=== PATIENT | male | born 1995 | race Caucasian/White ===

== ENCOUNTER 2016-07-20 17:27 | Emergency (ER) | payer SELFPAY ==
[2016-07-20] MEDS ORDERED: BACITRACIN-POLYMYXIN B OINT U/D PACK TOP ONE (17:34)
[2016-07-20 17:43] VITALS: O2SAT 99
[2016-07-20] MEDS ORDERED: SODIUM CHLORIDE 0.9% (FLUSH) 10 ML SYG IV PRN (18:10)
[2016-07-20] MEDS ORDERED: SODIUM CHLORIDE 0.9% 1000ML 1,000 ML IVS PRN (18:10)
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
--- NOTE | 2016-07-20 18:36 | RAD ---
EXAM DESCRIPTION: Chest,1 View CLINICAL HISTORY: TRAUMA COMPARISON: None available TECHNIQUE: AP chest FINDINGS: The lungs are clear. There is no infiltrate or effusion. The heart is normal size. IMPRESSION: Normal one view chest Electronically signed by: Calin Samaniego MD 07/20/2016 6:35 PM CDT
--- NOTE | 2016-07-20 18:37 | RAD ---
EXAM DESCRIPTION: Elbow,Right 3 Views CLINICAL HISTORY: TRAUMA COMPARISON: None. TECHNIQUE: 3 views FINDINGS: I see no bone joint or soft tissue abnormality. IMPRESSION: Normal right elbow Electronically signed by: Calin Samaniego MD 07/20/2016 6:36 PM CDT
--- NOTE | 2016-07-20 19:00 | CT ---
EXAM DESCRIPTION: Abdomen/Pelvis w/Contrast CLINICAL HISTORY: 20 years Male TRAUMA, RUQ TENDERNESS COMPARISON: None. TECHNIQUE: Contiguous axial images obtained through the abdomen and pelvis following IV contrast. Reformatted images obtained. This exam was performed according to our department optimization program which includes automated exposure control, adjustment of the mA and/or kv according to patient size and/or use of iterative reconstruction technique. FINDINGS: The lung bases are clear. The liver appears unremarkable. The spleen and pancreas appear unremarkable. No adrenal masses. The kidneys appear unremarkable. No hydronephrosis. The gallbladder is visualized. No aneurysmal dilatation of the aorta. No bowel obstruction. No free pelvic fluid. There is mild stranding in the subcutaneous fatty tissues lateral to the right iliac bone which could be from edema and contusion. No acute osseous abnormality is identified. IMPRESSION: No acute intra-abdominal abnormality is identified. There is mild stranding in the subcutaneous fatty tissues lateral to the right iliac bone which could be from edema and contusion. Electronically signed by: Alfonso Mendoza MD 07/20/2016 7:00 PM CDT
[2016-07-20 20:11] VITALS: BP 124/80
[2016-07-20 20:12] VITALS: TEMP 98
== END 2016-07-20 20:13 | disposition home or self-care (01) ==
LOC: ER 17:27
DX: S70.211A Abrasion, right hip, initial encounter (principal); S40.012A Contusion of left shoulder, initial encounter; Z88.0 Allergy status to penicillin; Z88.3 Allergy status to other anti-infective agents; V19.9XXA Pedal cyclist (driver) (passenger) injured in unspecified traffic accident, initial encounter; Y93.55 Activity, bike riding; Y92.9 Unspecified place or not applicable
CPT/HCPCS: 36415; 71010; 73080; 74177; 80053; 80320; 82150; 85025; 85610; 85730; J7030

== ENCOUNTER 2016-09-17 13:35 | Emergency (ER) | payer SELFPAY ==
[2016-09-17] MEDS ORDERED: predniSONE 20 MG TAB PO ONE (13:50)
--- NOTE | 2016-09-17 13:50 | ED.PDOC ---
History of Present Illness - General Time Seen by Provider: 09/17/16 13:36 Source: patient Exam Limitations: no limitations - History of Present Illness Initial Comments: the patient is a 20-year-old male presenting to the emergency room secondary to stinging behind the lateral malleolus of his left ankle. he did get a brown spider out of issue. Was not a black spider. He does not know if it was a brown recluse. He is not exhibiting any systemic symptoms. There is no erythema extending from the area. He does have several older abrasions over that area already. No evidence of extending cellulitis. No paralysis. Motor functions are preserved. Sensation is preserved. Vital signs within normal limits. He is in no distress. Timing/Duration: 1 hour Severity: mild Improving Factors: nothing Worsening Factors: nothing Associated Symptoms: denies symptoms Allergies/Adverse Reactions: Allergies Cefpodoxime [From Vantin] Allergy (Unknown, Verified 07/20/16 17:38) Cephalexin [From Keflex] Allergy (Unknown, Verified 07/20/16 17:38) Penicillins Allergy (Unknown, Verified 07/20/16 17:38) Review of Systems - Review of Systems Constitutional: States: no symptoms reported EENTM: States: no symptoms reported Respiratory: States: no symptoms reported Cardiology: States: no symptoms reported Gastrointestinal/Abdominal: States: no symptoms reported Genitourinary: States: no symptoms reported Musculoskeletal: States: see HPI Skin: States: see HPI Neurological: States: see HPI Endocrine: States: no symptoms reported All other Systems: No Change from Baseline Past Medical History (General) - Patient Medical History Hx Seizures: No Hx Stroke: No Hx Dementia: No Hx Asthma: No Hx of COPD: No Hx Cardiac Disorders: No Hx Congestive Heart Failure: No Hx Pacemaker: No Hx Hypertension: No Hx Thyroid Disease: No Hx Diabetes: No Hx Gastroesophageal Reflux: No Hx Renal Disease: No Hx Cancer: No Hx of HIV: No Hx Hepatitis C: No Hx MRSA: No MRSA Source:: Wound - Vaccination History Hx Tetanus, Diphtheria Vaccination: Yes Hx Influenza Vaccination: No Hx Pneumococcal Vaccination: No - Social History Hx Tobacco Use: Yes Hx Chewing Tobacco Use: No Hx Alcohol Use: Yes Hx Substance Use: Yes - MARIJUANA Hx Substance Use Treatment: No Hx Depression: No Hx Physical Abuse: No Hx Emotional Abuse: No Hx Suspected Abuse: No - Female History Patient : No Family Medical History - Family History Mother Family History: No Known Living Status: Still Living Physical Exam - Physical Exam General Appearance: Alert, Comfortable, No apparent distress Eye Exam: bilateral normal - he does wear glasses of which the left lens is busted Ears, Nose, Throat: hearing grossly normal, normal ENT inspection, normal pharynx Neck: full range of motion, supple Respiratory: chest non-tender, lungs clear, normal breath sounds, no respiratory distress, no accessory muscle use Cardiovascular/Chest: normal peripheral pulses, regular rate, rhythm, no edema Peripheral Pulses: radial,right: 2+, radial,left: 2+, dorsalis pedis,right: 2+, dorsalis pedis,left: 2+, posterior tibialis,right: 2+, posterior tibialis,left: 2+ Gastrointestinal/Abdominal: non tender, soft Rectal Exam: deferred Extremity: normal range of motion, no pedal edema, no calf tenderness, normal capillary refill, other - see history of present illness. There is no significant swelling. Neurologic: no motor/sensory deficits, alert, normal mood/affect, oriented x 3 Skin Exam: normal color - with the exception of the older abrasions to the lower extremities. Progress - Progress Progress: 09/17/16 13:52 the patient is a 20-year-old male presenting due to insect sting to the left lower extremity thought to be due to a brown spider. At this time there is no visible localized reaction at the site and no obvious systemic reaction. The patient is receiving 1 dose of oral prednisone here to prevent any systemic reaction. He needs to monitor the site for any extending redness. If he develops any generalized rash or shortness of breath or chest pain or any other worrisome symptoms then he needs to return here for reevaluation. Needs to keep well-hydrated. No antibiotics are warranted at this time. He can follow up with his primary care doctor otherwise as previously scheduled. The patient can resume work tomorrow, as long as he is having no worsening. Departure - Departure Clinical Impression: Insect bites Disposition: Discharge to Home or Self Care Condition: Fair Instructions: DI for Insect Bites and Stings Diet: regular diet Activity: increase activity as tolerated Referrals: CHANDAN GARVEY [Primary Care Provider] - 1-2 Weeks Additional Instructions: the patient is a 20-year-old male presenting due to insect sting to the left lower extremity thought to be due to a brown spider. At this time there is no visible localized reaction at the site and no obvious systemic reaction. The patient is receiving 1 dose of oral prednisone here to prevent any systemic reaction. He needs to monitor the site for any extending redness. If he develops any generalized rash or shortness of breath or chest pain or any other worrisome symptoms then he needs to return here for reevaluation. Needs to keep well-hydrated. No antibiotics are warranted at this time. He can follow up with his primary care doctor otherwise as previously scheduled. The patient can resume work tomorrow, as long as he is having no worsening.
[2016-09-17 13:53] VITALS: BP 116/68; TEMP 97; O2SAT 96
== END 2016-09-17 14:02 | disposition home or self-care (01) ==
LOC: ER 13:35
DX: T63.301A Toxic effect of unspecified spider venom, accidental (unintentional), initial encounter (principal); Z88.0 Allergy status to penicillin; Z88.3 Allergy status to other anti-infective agents; Y92.9 Unspecified place or not applicable; Z87.891 Personal history of nicotine dependence

== ENCOUNTER 2017-02-18 11:20 | Emergency (ER) | payer SELFPAY ==
[2017-02-18 11:34] VITALS: O2SAT 98
[2017-02-18] MEDS ORDERED: IBUPROFEN 200 MG TAB PO ONE (11:35)
[2017-02-18] MEDS ORDERED: ALUMINUM & MAGNESIUM HYDROXIDE 30 ML UD PO ONE (11:35)
--- NOTE | 2017-02-18 12:34 | ED.PDOC ---
History of Present Illness - General Chief Complaint: ENT Problem Stated Complaint: sore throat,stomach ache Time Seen by Provider: 02/18/17 11:33 Source: patient Exam Limitations: no limitations - History of Present Illness Initial Comments: presents with sore throat nausea and myalgias for the last 24 hours. no productive sputum. no sob. no chest pain. mild runny nose. Timing/Duration: 24 hours Severity: mild Improving Factors: nothing Worsening Factors: nothing Associated Symptoms: cough, malaise, nausea/vomiting Allergies/Adverse Reactions: Allergies Cefpodoxime [From Vantin] Allergy (Unknown, Verified 09/17/16 13:53) Cephalexin [From Keflex] Allergy (Unknown, Verified 09/17/16 13:53) Penicillins Allergy (Unknown, Verified 09/17/16 13:53) Home Medications: Ambulatory Orders Ondansetron [Zofran Odt] 4 mg PO Q4H PRN #10 tab 02/18/17 Review of Systems - Review of Systems Constitutional: States: fever - subjective, malaise EENTM: States: nose congestion, throat pain Respiratory: States: cough Cardiology: States: no symptoms reported Gastrointestinal/Abdominal: States: nausea Genitourinary: States: no symptoms reported Musculoskeletal: States: other - mild myalgias Skin: States: no symptoms reported Neurological: States: no symptoms reported Endocrine: States: no symptoms reported All other Systems: No Change from Baseline Past Medical History (General) - Patient Medical History Hx Seizures: No Hx Stroke: No Hx Dementia: No Hx Asthma: Yes Hx of COPD: No Hx Cardiac Disorders: No Hx Congestive Heart Failure: No Hx Pacemaker: No Hx Hypertension: No Hx Thyroid Disease: No Hx Diabetes: No Hx Gastroesophageal Reflux: No Hx Renal Disease: No Hx Cancer: No Hx of HIV: No Hx Hepatitis C: No Hx MRSA: No MRSA Source:: Wound - Vaccination History Hx Tetanus, Diphtheria Vaccination: Yes Hx Influenza Vaccination: No Hx Pneumococcal Vaccination: No - Social History Hx Tobacco Use: Yes Hx Chewing Tobacco Use: No Hx Alcohol Use: Yes Hx Substance Use: Yes - MARIJUANA Hx Substance Use Treatment: No Hx Depression: No Hx Physical Abuse: No Hx Emotional Abuse: No Hx Suspected Abuse: No - Female History Patient : No Family Medical History - Family History Mother Family History: No Known Living Status: Still Living Physical Exam - Physical Exam General Appearance: Alert, Comfortable, No apparent distress Eye Exam: bilateral normal Ears, Nose, Throat: hearing grossly normal, nasal congestion, pharyngeal erythema Neck: full range of motion, supple Respiratory: lungs clear, normal breath sounds, no respiratory distress, no accessory muscle use Cardiovascular/Chest: normal peripheral pulses, regular rate, rhythm, no edema Peripheral Pulses: radial,right: 2+, radial,left: 2+ Gastrointestinal/Abdominal: non tender, soft Rectal Exam: deferred Back Exam: normal inspection, no CVA tenderness Extremity: non-tender, normal inspection, no pedal edema, normal capillary refill 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 he has tested negative for strep and flu. he needs to keep well hydrated. he can take motrin for discomfort and fever and will be writtne for some zofran for as needed use for nausea control. a bland diet is recommended. he is to resume work wednesday otherwise. er warnings are given. follow up with pcp next week. Departure - Departure Clinical Impression: Pharyngitis Qualifiers: Pharyngitis/tonsillitis etiology: other specified organisms Qualified Code(s): J02.8 - Acute pharyngitis due to other specified organisms Disposition: Discharge to Home or Self Care Condition: Fair Departure Forms: Patient Portal Self Enrollment, ED Discharge - Pt. Copy Instructions: DI for Viral Syndrome Diet: bland diet Activity: increase activity as tolerated Referrals: CHANDAN GARVEY [Primary Care Provider] - 1-5 Days Prescriptions: Ondansetron [Zofran Odt] 4 mg PO Q4H PRN #10 tab PRN Reason: Vomiting Home Medications: Ambulatory Orders Ondansetron [Zofran Odt] 4 mg PO Q4H PRN #10 tab 02/18/17 Additional Instructions: the patient presents with a short duration of symptoms consistent with a viral syndrome. he has tested negative for strep and flu. he needs to keep well hydrated. he can take motrin for discomfort and fever and will be writtne for some zofran for as needed use for nausea control. a bland diet is recommended. he is to resume work wednesday otherwise. er warnings are given. follow up with pcp next week.
[2017-02-18 12:49] VITALS: BP 116/74; TEMP 98
== END 2017-02-18 12:49 | disposition home or self-care (01) ==
LOC: ER 11:20
DX: J02.8 Acute pharyngitis due to other specified organisms (principal)

== ENCOUNTER 2017-07-23 09:06 | Emergency (ER) | payer OTHER ==
[2017-07-23 09:15] VITALS: BP 120/77; TEMP 96.7; O2SAT 100
[2017-07-23] MEDS ORDERED: HYDROcodone 10MG/APAP 325MG 1 EA TAB PO ONE (09:25)
--- NOTE | 2017-07-23 09:27 | ED.PDOC ---
History of Present Illness - General Chief Complaint: Dental/Mouth Stated Complaint: dental pain Time Seen by Provider: 07/23/17 09:25 Source: patient Exam Limitations: no limitations Additional Information: HAS SEEN HIS DENTIST AND NEEDS A RIGHT UPPER SECOND MOLAR EXTRACTION. THE PATIENT WAS SENT TO [facility] BUT HE IS UNABLE TO AFFORD THE CONSULTATION. - History of Present Illness Timing/Duration: gradual EENT Location: dental Prearrival Treatment: prescription meds Allergies/Adverse Reactions: Allergies Cefpodoxime [From Vantin] Allergy (Unknown, Verified 09/17/16 13:53) Cephalexin [From Keflex] Allergy (Unknown, Verified 09/17/16 13:53) Penicillins Allergy (Unknown, Verified 09/17/16 13:53) Home Medications: Ambulatory Orders Ondansetron [Zofran Odt] 4 mg PO Q4H PRN #10 tab 02/18/17 Acetamin W/Cod #3 Tab [Tylenol w/CODEINE #3] 1 ea PO Q6HRS #20 tab 07/23/17 Review of Systems - Review of Systems Constitutional: States: no symptoms reported EENTM: States: mouth pain, mouth swelling Respiratory: States: no symptoms reported Cardiology: States: no symptoms reported Gastrointestinal/Abdominal: States: no symptoms reported Genitourinary: States: no symptoms reported Musculoskeletal: States: no symptoms reported Skin: States: no symptoms reported Neurological: States: no symptoms reported Endocrine: States: no symptoms reported Past Medical History (General) - Patient Medical History Hx Seizures: No Hx Stroke: No Hx Dementia: No Hx Asthma: Yes Hx of COPD: No Hx Cardiac Disorders: No Hx Congestive Heart Failure: No Hx Pacemaker: No Hx Hypertension: No Hx Thyroid Disease: No Hx Diabetes: No Hx Gastroesophageal Reflux: No Hx Renal Disease: No Hx Cancer: No Hx of HIV: No Hx Hepatitis C: No Hx MRSA: No MRSA Source:: Wound - Vaccination History Hx Tetanus, Diphtheria Vaccination: Yes Hx Influenza Vaccination: Yes Hx Pneumococcal Vaccination: No - Social History Hx Tobacco Use: Yes Hx Chewing Tobacco Use: No Hx Alcohol Use: Yes Hx Substance Use: Yes - MARIJUA[place] Hx Substance Use Treatment: No Hx Depression: No Hx Physical Abuse: No Hx Emotional Abuse: No Hx Suspected Abuse: No - Female History Patient : No Family Medical History - Family History Mother Family History: No Known Living Status: Still Living Physical Exam - Physical Exam General Appearance: Alert, Well Nourished Eye Exam: bilateral normal Ear Exam: bilateral ear: auricle normal Nasal Exam: normal inspection, active bleeding Throat Exam: dental tenderness Neck: non-tender, full range of motion, supple Cardiovascular/Respiratory: regular rate, rhythm, no M/R/G, normal peripheral pulses, no JVD, normal breath sounds Abdominal Exam: non-tender 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 Copy, Patient Portal Self Enrollment Diet: resume usual diet Referrals: CHANDAN GARVEY [Primary Care Provider] - 1-2 Weeks Prescriptions: Acetamin W/Cod #3 Tab [Tylenol w/CODEINE #3] 1 ea PO Q6HRS #20 tab Home Medications: Ambulatory Orders Ondansetron [Zofran Odt] 4 mg PO Q4H PRN #10 tab 02/18/17 Acetamin W/Cod #3 Tab [Tylenol w/CODEINE #3] 1 ea PO Q6HRS #20 tab 07/23/17
== END 2017-07-23 09:40 | disposition home or self-care (01) ==
LOC: ER 09:06
DX: K02.9 Dental caries, unspecified (principal)

== ENCOUNTER 2017-08-03 09:36 | Emergency (ER) | payer OTHER ==
[2017-08-03 09:46] VITALS: TEMP 97.8
--- NOTE | 2017-08-03 09:51 | ED.PDOC ---
History of Present Illness - General Chief Complaint: General Stated Complaint: achy tooth; back pain Time Seen by Provider: 08/03/17 09:50 Source: patient Exam Limitations: no limitations - History of Present Illness Initial Comments: Vamsi Gallardo 21 y/o male came to er with achy tooth and intermittent dul low back pain and was told that he has scoliosis;made a dental appointment but unable to afford it. Timing/Duration: other - several months ago Improving Factors: nothing Worsening Factors: eating Associated Symptoms: denies symptoms Allergies/Adverse Reactions: Allergies Cefpodoxime [From Vantin] Allergy (Unknown, Verified 08/03/17 09:46) Cephalexin [From Keflex] Allergy (Unknown, Verified 08/03/17 09:46) Penicillins Allergy (Unknown, Verified 08/03/17 09:46) Home Medications: Ambulatory Orders Baclofen 20 mg PO BID PRN #14 tab 08/03/17 Review of Systems - Review of Systems Constitutional: States: no symptoms reported EENTM: States: see HPI Respiratory: States: no symptoms reported Cardiology: States: no symptoms reported Genitourinary: States: no symptoms reported Musculoskeletal: States: see HPI Past Medical History (General) - Patient Medical History Hx Seizures: No Hx Stroke: No Hx Dementia: No Hx Asthma: Yes Hx of COPD: No Hx Cardiac Disorders: No Hx Congestive Heart Failure: No Hx Pacemaker: No Hx Hypertension: No Hx Thyroid Disease: No Hx Diabetes: No Hx Gastroesophageal Reflux: No Hx Renal Disease: No Hx Cancer: No Hx of HIV: No Hx Hepatitis C: No Hx MRSA: No MRSA Source:: Wound Surgical History: other - Vaccination History Hx Tetanus, Diphtheria Vaccination: Yes Hx Influenza Vaccination: Yes - 2017 Hx Pneumococcal Vaccination: No - Social History Hx Tobacco Use: Yes Hx Chewing Tobacco Use: No Hx Alcohol Use: Yes Hx Substance Use: Yes - MARIJUANA Hx Substance Use Treatment: No Hx Depression: No Hx Physical Abuse: No Hx Emotional Abuse: No Hx Suspected Abuse: No - Female History Patient : No Family Medical History - Family History Mother Family History: No Known Living Status: Still Living Physical Exam - Physical Exam General Appearance: Alert, Comfortable, No apparent distress Eye Exam: bilateral normal Ears, Nose, Throat: hearing grossly normal, normal ENT inspection, other - eroded right upper molar Neck: non-tender, supple Respiratory: lungs clear, normal breath sounds Cardiovascular/Chest: normal peripheral pulses, regular rate, rhythm, no murmur Peripheral Pulses: radial,right: 2+, radial,left: 2+ Gastrointestinal/Abdominal: soft Back Exam: no CVA tenderness, no vertebral tenderness, other - rom full no severe lateraral curve note Neurologic: no motor/sensory deficits, alert, oriented x 3 Skin Exam: normal color, warm/dry Progress - Progress Progress: 08/03/17 10:02 Vital Signs - 8 hr 08/03/17 09:41 Temperature 97.8 F Pulse Rate [ 73 Left Radial] Respiratory 18 Rate Blood Pressure 145/79 [Left Arm] O2 Sat by Pulse 98 Oximetry - EKG/XRAY/CT XRAY: thoracic/lumbar spine no acute abnormalities noted Departure - Departure Clinical Impression: Pain, dental, Carious teeth Back pain Qualifiers: Back pain location: thoracic back pain Chronicity: unspecified Back pain laterality: bilateral Qualified Code(s): M54.6 - Pain in thoracic spine Time of Disposition: 11:23 Disposition: Discharge to Home or Self Care Departure Forms: ED Discharge - Pt. Copy, Patient Portal Self Enrollment Instructions: DI for Low Back Pain, Managing Chronic Low Back Pain, Taking Care of Your Back, Tooth Decay, DI for Dental Pain Diet: other - SOFT DIET NEEDED Referrals: CHANDAN GARVEY [Primary Care Provider] - 1-2 Weeks Prescriptions: Baclofen 20 mg PO BID PRN #14 tab PRN Reason: Muscle Spasms Home Medications: Ambulatory Orders Baclofen 20 mg PO BID PRN #14 tab 08/03/17 Additional Instructions: May take Aleve 1-2 tablets am/pm for pain as needed;Call [facility]-[address] [facility]-[phone];[facility] [address], [place] phone-[phone]
[2017-08-03] MEDS ORDERED: CLINDAMYCIN HCL CAP 150 MG CAP PO ONE (10:03)
[2017-08-03] MEDS ORDERED: BACLOFEN 10 MG TAB PO ONE (10:03)
[2017-08-03] MEDS ORDERED: KETOROLAC TROMETHAMINE INJ 60 MG/2 ML VIAL IM ONE (10:03)
--- NOTE | 2017-08-03 11:13 | RAD ---
EXAM DESCRIPTION: Lumbar Spine 3 Views CLINICAL HISTORY: 21 years Male, pain COMPARISON: None. TECHNIQUE: AP and lateral radiographs of the lumbar spine were obtained. FINDINGS: There is straightening of the normal lordotic curvature of the lumbar spine. The vertebral body heights are well-maintained with no acute compression deformity. No significant intervertebral disc space narrowing is noted. No spondylolysis or spondylolisthesis. The visualized prevertebral and paravertebral soft tissues appear normal. IMPRESSION: Normal radiograph of the lumbar spine. Electronically signed by: Sugey Truong MD 08/03/2017 11:12 AM CDT
--- NOTE | 2017-08-03 11:14 | RAD ---
EXAM DESCRIPTION: Thoracic Spine,AP Lateral CLINICAL HISTORY: 21 years Male, pain COMPARISON: None. TECHNIQUE: AP and lateral radiographs of the thoracic spine were obtained. FINDINGS: The vertebral body heights are well-maintained with no acute compression deformity. No significant intervertebral disc space narrowing. No evidence of spondylolysis or spondylolisthesis. The visualized prevertebral and paravertebral soft tissues appear normal. IMPRESSION: Normal radiographs of the thoracic spine. Electronically signed by: Sugey Truong MD 08/03/2017 11:12 AM CDT
[2017-08-03 11:36] VITALS: BP 114/79; O2SAT 100
== END 2017-08-03 11:36 | disposition home or self-care (01) ==
LOC: ER 09:36
DX: K02.9 Dental caries, unspecified (principal); M54.6 Pain in thoracic spine; J45.909 Unspecified asthma, uncomplicated; Z87.891 Personal history of nicotine dependence
CPT/HCPCS: 72070; 72100; J1885

== ENCOUNTER 2018-01-06 07:04 | Emergency (ER) | payer SELFPAY ==
[2018-01-06] MEDS ORDERED: predniSONE 20 MG TAB PO ONE (07:21)
[2018-01-06] MEDS ORDERED: CIPROFLOXACIN 500 MG TAB PO ONE (07:21)
[2018-01-06 07:22] VITALS: TEMP 97.4; O2SAT 100
--- NOTE | 2018-01-06 07:49 | ED.PDOC ---
History of Present Illness - General Chief Complaint: Dental/Mouth Stated Complaint: dental pain Time Seen by Provider: 01/06/18 07:20 Source: patient Exam Limitations: no limitations - History of Present Illness Initial Comments: the patient is a 22-year-old male presenting to emergency room secondary to primarily dental pain from his right most posterior molar. The patient does have numerous dental caries. No evidence of any obvious abscess formation. He does have some mild tenderness to palpation over the right maxillary sinus. Additionally he reports that the pain was so bad this morning that he threw up one time. He does have some mild shortness of breath and does have a history of asthma without any medications at home. Vital signs are stable. He is alert and oriented. No evidence of sepsis. No evidence respiratory distress. He does have mild scattered wheezes on exam. He does of course still smoke. Timing/Duration: 1 week Severity: moderate Improving Factors: nothing Worsening Factors: nothing Associated Symptoms: loss of appetite, nausea/vomiting, shortness of breath Allergies/Adverse Reactions: Allergies Cefpodoxime [From Vantin] Allergy (Unknown, Verified 01/06/18 07:23) Cephalexin [From Keflex] Allergy (Unknown, Verified 01/06/18 07:23) Penicillins Allergy (Unknown, Verified 01/06/18 07:23) Home Medications: Ambulatory Orders Albuterol Inhaler [Ventolin Hfa Inhaler] 2 puff INH Q4H PRN #1 inh 01/06/18 Ciprofloxacin [Cipro] 500 mg PO BID #14 tab 01/06/18 Tramadol HCl 50 mg PO Q8HR PRN #20 tab 01/06/18 predniSONE [Prednisone] 20 mg PO DAILY #3 tab 01/06/18 Review of Systems - Review of Systems Constitutional: States: no symptoms reported EENTM: States: see HPI Respiratory: States: see HPI Cardiology: States: no symptoms reported Gastrointestinal/Abdominal: States: see HPI Genitourinary: States: no symptoms reported Musculoskeletal: States: no symptoms reported Skin: States: no symptoms reported Neurological: States: no symptoms reported Endocrine: States: no symptoms reported All other Systems: No Change from Baseline Past Medical History (General) - Patient Medical History Hx Seizures: No Hx Stroke: No Hx Dementia: No Hx Asthma: Yes Hx of COPD: No Hx Cardiac Disorders: No Hx Congestive Heart Failure: No Hx Pacemaker: No Hx Hypertension: No Hx Thyroid Disease: No Hx Diabetes: No Hx Gastroesophageal Reflux: No Hx Renal Disease: No Hx Cancer: No Hx of HIV: No Hx Hepatitis C: No Hx MRSA: No MRSA Source:: Wound Surgical History: other - Vaccination History Hx Tetanus, Diphtheria Vaccination: Yes Hx Influenza Vaccination: No Hx Pneumococcal Vaccination: No - Social History Hx Tobacco Use: Yes Hx Chewing Tobacco Use: No Hx Alcohol Use: No Hx Substance Use: Yes - MARIJUANA weekly Hx Substance Use Treatment: No Hx Depression: No Hx Physical Abuse: No Hx Emotional Abuse: No Hx Suspected Abuse: No - Female History Patient : No Family Medical History - Family History Mother Family History: No Known Living Status: Still Living Physical Exam - Physical Exam General Appearance: Alert, No apparent distress, Unkempt Eye Exam: bilateral normal Ears, Nose, Throat: hearing grossly normal, other - very poor dentition with numerous dental caries. No obvious abscess. Several fractured teeth. 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 Additionally he is having a mild asthma exacerbation. He needs to not smoke. The patient was given a dose of oral ciprofloxacin and oral prednisone here for both issues. He will be written for ciprofloxacin for the next 7 days for the dental infection and prednisone for 3 days for improvement in his asthma as well as reduction of discomfort due to inflammation with the tooth. He'll also be written for a Ventolin inhaler. He will be written for some tramadol for some pain however Motrin will likely work better with the dental pain than the tramadol. He does need follow-up with a dentist of course for definitive care of the tooth. ER warnings were given. Keep routine follow-up with primary care doctor otherwise. Departure - Departure Clinical Impression: Compound dental caries Asthma exacerbation Qualifiers: Asthma severity: mild Asthma persistence: intermittent Qualified Code(s): J45.21 - Mild intermittent asthma with (acute) exacerbation Disposition: Discharge to Home or Self Care Condition: Fair Departure Forms: ED Discharge - Pt. Copy, Patient Portal Self Enrollment Instructions: DI for Dental Pain, Asthma, Adult (DC) Diet: regular diet Activity: increase activity as tolerated Referrals: CHANDAN GARVEY [Primary Care Provider] - 1-2 Weeks Prescriptions: Tramadol HCl 50 mg PO Q8HR PRN #20 tab PRN Reason: Moderate Pain Albuterol Inhaler [Ventolin Hfa Inhaler] 2 puff INH Q4H PRN #1 inh PRN Reason: Shortness Of Breath Ciprofloxacin [Cipro] 500 mg PO BID #14 tab predniSONE [Prednisone] 20 mg PO DAILY #3 tab Home Medications: Ambulatory Orders Albuterol Inhaler [Ventolin Hfa Inhaler] 2 puff INH Q4H PRN #1 inh 01/06/18 Ciprofloxacin [Cipro] 500 mg PO BID #14 tab 01/06/18 Tramadol HCl 50 mg PO Q8HR PRN #20 tab 01/06/18 predniSONE [Prednisone] 20 mg PO DAILY #3 tab 01/06/18 Additional Instructions: the patient is a 22-year-old male presents to emergency room with dental caries and associated dental root infection. Additionally he is having a mild asthma exacerbation. He needs to not smoke. The patient was given a dose of oral ciprofloxacin and oral prednisone here for both issues. He will be written for ciprofloxacin for the next 7 days for the dental infection and prednisone for 3 days for improvement in his asthma as well as reduction of discomfort due to inflammation with the tooth. He'll also be written for a Ventolin inhaler. He will be written for some tramadol for some pain however Motrin will likely work better with the dental pain than the tramadol. He does need follow-up with a dentist of course for definitive care of the tooth. ER warnings were given. Keep routine follow-up with primary care doctor otherwise.
[2018-01-06 08:07] VITALS: BP 113/72
== END 2018-01-06 08:07 | disposition home or self-care (01) ==
LOC: ER 07:04
DX: K02.9 Dental caries, unspecified (principal); J45.21 Mild intermittent asthma with (acute) exacerbation; F17.200 Nicotine dependence, unspecified, uncomplicated; F12.90 Cannabis use, unspecified, uncomplicated; Z88.1 Allergy status to other antibiotic agents; Z88.0 Allergy status to penicillin

== ENCOUNTER 2019-07-25 04:39 | Emergency (ER) | payer SELFPAY ==
[2019-07-25] MEDS ORDERED: CLINDAMYCIN HCL CAP 150 MG CAP PO ONE (04:54)
[2019-07-25] MEDS ORDERED: traMADol HCL 50 MG TAB PO ONE (04:54)
[2019-07-25 04:56] VITALS: TEMP 96.8
--- NOTE | 2019-07-25 04:58 | ED.PDOC ---
History of Present Illness - General Chief Complaint: Dental/Mouth Stated Complaint: toothache to rt side of jaw. Time Seen by Provider: 07/25/19 04:53 Source: patient, RN notes reviewed, Vital Signs reviewed - History of Present Illness Initial Comments: This is a 23-year-old male presenting to the emergency department with right upper tooth pain ongoing for 1-1/2 weeks. States the pain is been worse over the last 2 days. He is taken ibuprofen without improvement. No fever, no facial swelling. Allergies/Adverse Reactions: Allergies Cefpodoxime [From Vantin] Allergy (Unknown, Verified 01/06/18 07:23) Cephalexin [From Keflex] Allergy (Unknown, Verified 01/06/18 07:23) Penicillins Allergy (Unknown, Verified 01/06/18 07:23) Home Medications: Ambulatory Orders Albuterol Inhaler [Ventolin Hfa Inhaler] 2 puff INH Q4H PRN #1 inh 01/06/18 Ciprofloxacin [Cipro] 500 mg PO BID #14 tab 01/06/18 Tramadol HCl 50 mg PO Q8HR PRN #20 tab 01/06/18 predniSONE [Prednisone] 20 mg PO DAILY #3 tab 01/06/18 Clindamycin HCl 300 mg PO Q8HR #30 cap 07/25/19 Tramadol HCl 50 mg PO Q6H PRN #20 tab 07/25/19 Review of Systems - Review of Systems Constitutional: Denies: fever EENTM: States: mouth pain. Denies: no symptoms reported, nose pain, throat pain , mouth swelling Respiratory: Denies: short of breath, stridor Past Medical History (General) - Patient Medical History Hx Seizures: No Hx Stroke: No Hx Dementia: No Hx Asthma: Yes Hx of COPD: No Hx Cardiac Disorders: No Hx Congestive Heart Failure: No Hx Pacemaker: No Hx Hypertension: No Hx Thyroid Disease: No Hx Diabetes: No Hx Gastroesophageal Reflux: No Hx Renal Disease: No Hx Cancer: No Hx of HIV: No Hx Hepatitis C: No Hx MRSA: No MRSA Source:: Wound - Vaccination History Hx Tetanus, Diphtheria Vaccination: Yes Hx Influenza Vaccination: No Hx Pneumococcal Vaccination: No - Social History Hx Tobacco Use: Yes Hx Chewing Tobacco Use: No Hx Alcohol Use: No Hx Substance Use: Yes - MARIJUANA weekly Hx Substance Use Treatment: No Hx Depression: No Hx Physical Abuse: No Hx Emotional Abuse: No Hx Suspected Abuse: No - Female History Patient : No Family Medical History - Family History Mother Family History: No Known Living Status: Still Living Physical Exam - Physical Exam General Appearance: Alert, Comfortable Ears, Nose, Throat: normal pharynx, other - Widespread dental caries and generally poor dentition. He is tender over his #1. Tooth is very carious with erosions into the pulp. There is no adjacent dental abscess. No facial swelling. Tolerating secretions. Neck: non-tender, full range of motion, supple Respiratory: lungs clear, normal breath sounds, no respiratory distress, no accessory muscle use Neurologic: alert, oriented x 3 Progress - Progress Progress: 07/25/19 05:03 Facial pain, no abscess, poor dentition, suspect acute on chronic pulpitis. Multiple antibiotic allergies. Will discharge home with clindamycin. [facility] reviewed. Will discharge home with tramadol for pain. Recommended follow-up with PCP as needed as well as his dentist as soon as possible Trey Wang [facility] Departure - Departure Clinical Impression: Acute pain of mouth, Dental caries into pulp, Acute pulpitis Disposition: Discharge to Home or Self Care Condition: Good Departure Forms: ED Discharge - Pt. Copy, Patient Portal Self Enrollment Diet: resume usual diet Activity: increase activity as tolerated Referrals: CHANDAN GARVEY [Primary Care Provider] - 1-2 Weeks Prescriptions: Clindamycin HCl 300 mg PO Q8HR #30 cap Tramadol HCl 50 mg PO Q6H PRN #20 tab PRN Reason: Pain -- Moderate To Severe Home Medications: Ambulatory Orders Albuterol Inhaler [Ventolin Hfa Inhaler] 2 puff INH Q4H PRN #1 inh 01/06/18 Ciprofloxacin [Cipro] 500 mg PO BID #14 tab 01/06/18 Tramadol HCl 50 mg PO Q8HR PRN #20 tab 01/06/18 predniSONE [Prednisone] 20 mg PO DAILY #3 tab 01/06/18 Clindamycin HCl 300 mg PO Q8HR #30 cap 07/25/19 Tramadol HCl 50 mg PO Q6H PRN #20 tab 07/25/19 Additional Instructions: Follow-up with your dentist as soon as possible. Return to the emergency room for fever, difficulty swallowing, facial swelling, or any other concerns.
[2019-07-25 05:10] VITALS: BP 124/77; O2SAT 97
== END 2019-07-25 05:08 | disposition home or self-care (01) ==
LOC: ER 04:39
DX: K02.9 Dental caries, unspecified (principal); K04.01 Reversible pulpitis; J45.909 Unspecified asthma, uncomplicated; Z87.891 Personal history of nicotine dependence; Z88.0 Allergy status to penicillin; Z88.1 Allergy status to other antibiotic agents; Z79.899 Other long term (current) drug therapy